=== PATIENT | female | born 1965 | race Caucasian/White ===

== ENCOUNTER → 2016-12-24 | Outpatient (CLI) | payer BC ==
[2016-12-24 08:04] LABS: ALT 28 U/L (9-52); AST 20 U/L (14-36); Alkaline Phosphatase 54 U/L (38-126); Anion Gap 9 mmol/L; Blood Urea Nitrogen 13 mg/dL (7-17); Carbon Dioxide 26 mmol/L (22-30); Chloride 106 mmol/L (98-107); Cholesterol 249 mg/dL (<200); Glucose 89 mg/dL (74-99); HDL Cholesterol 69 mg/dL (40-60); Non-African American GFR(MDRD) >60 (>60 ml/min/1.73 sqM); Potassium 4.1 mmol/L (3.5-5.1); Sodium 141 mmol/L (137-145); Total Bilirubin 0.6 mg/dL (0.2-1.3); Total Protein 7.3 g/dL (6.3-8.2)
--- NOTE | 2016-12-25 12:47 | MM ---
Reason for exam: screening (asymptomatic). Last mammogram was performed 1 year and 1 month ago. History: Family history of breast cancer in maternal aunt and breast cancer in maternal grandmother at age 52. Physical Findings: A clinical breast exam by your physician is recommended on an annual basis and results should be correlated with mammographic findings. MG 3D Screening Mammo W/Cad Bilateral CC and MLO view(s) were taken. Prior study comparison: November 24, 2015, bilateral MG 3d screening mammo w/cad. November 17, 2014, bilateral MG screening mammo w CAD. There are scattered fibroglandular densities. Finding: There are a few typically benign round calcifications in the right breast. There is no discrete abnormality. ASSESSMENT: Benign, BI-RAD 2 RECOMMENDATION: Routine screening mammogram of both breasts in 1 year.
== END | disposition home or self-care (01) ==
LOC: RADMAMWWP 06:54
PROVIDERS: ATTEND Obstetrics & Gynecology
DX: Z12.31 Encounter for screening mammogram for malignant neoplasm of breast (principal); E78.4 Other hyperlipidemia
CPT/HCPCS: 80061; 80053; 77063; 36415; G0202

== ENCOUNTER → 2018-01-05 | Outpatient (CLI) | payer BC ==
[2018-01-05 07:50] LABS: Cholesterol 242 mg/dL (<200); HDL Cholesterol 67 mg/dL (40-60); LDL Cholesterol,Calculated 158 mg/dL (0-99); Triglycerides 83 mg/dL (<150)
--- NOTE | 2018-01-06 14:43 | MM ---
Reason for exam: screening (asymptomatic). Last mammogram was performed 1 year ago. History: Family history of breast cancer in maternal aunt and breast cancer in maternal grandmother at age 52. Physical Findings: A clinical breast exam by your physician is recommended on an annual basis and results should be correlated with mammographic findings. MG 3D Screening Mammo W/Cad Bilateral CC and MLO view(s) were taken. Prior study comparison: December 24, 2016, bilateral MG 3d screening mammo w/cad. November 28, 2015, left breast MG 3d work up w/cad LT. There are scattered fibroglandular densities. There is no discrete abnormality. No significant changes when compared with prior studies. ASSESSMENT: Negative, BI-RAD 1 RECOMMENDATION: Routine screening mammogram of both breasts in 1 year.
== END | disposition home or self-care (01) ==
LOC: RADMAMWWP 07:06
PROVIDERS: ATTEND Obstetrics & Gynecology
DX: Z12.31 Encounter for screening mammogram for malignant neoplasm of breast (principal); Z13.220 Encounter for screening for lipoid disorders
CPT/HCPCS: 77063; 77067; 80061

== ENCOUNTER → 2018-05-22 | Outpatient (CLI) | payer BC ==
[2018-05-22 08:55] LABS: Basophils % (A) 1 %; Eosinophils # (A) 0.2 k/uL (0-0.7); Eosinophils % (A) 2 %; HCT 38.8 % (34.0-46.0); HGB 12.7 gm/dL (11.4-16.0); Lymphocytes # (A) 1.9 k/uL (1.0-4.8); Lymphocytes % (A) 27 %; MCH 30.7 pg (25.0-35.0); MCHC 32.8 g/dL (31.0-37.0); MCV 93.7 fL (80.0-100.0); Mean Platelet Volume 7.2; Monocytes # (A) 0.4 k/uL (0-1.0); Monocytes % (A) 6 %; Neutrophils # (A) 4.3 k/uL (1.3-7.7); Neutrophils % (A) 62 %; Platelet Count 280 k/uL (150-450); RBC 4.14 m/uL (3.80-5.40); RDW 13.4 % (11.5-15.5)
== END | disposition home or self-care (01) ==
LOC: LABWHC1 08:22
PROVIDERS: ATTEND Obstetrics & Gynecology
DX: Z01.818 Encounter for other preprocedural examination (principal); Z01.812 Encounter for preprocedural laboratory examination
CPT/HCPCS: 36415; 85025; 93005

== ENCOUNTER 2018-06-01 06:11 | Day surgery (SDC) | payer BC ==
[2018-05-27 11:35] VITALS: BMI 24.0
--- NOTE | 2018-05-28 12:39 | P.HPOB ---
History of Present Illness H&P Date: 05/28/18 Chief Complaint: Menorrhagia and endometrial polyp This patient is a pleasant 52-year-old 3 para 2 female who presented to my office for evaluation of heavy menstrual bleeding. Patient episode where she began bleeding so heavily the blood was running down her leg and 7 days with flooding. I ordered an ultrasound which showed endometrium to be 8 mm but there appeared to be a 1 cm endometrial polyp. She therefore now presents for further evaluation by hysteroscopy and D&C. Review of Systems Constitutional: Reports as per HPI Menstruation: Reports as per HPI, Reports period heavy Past Medical History Past Medical History: Hyperlipidemia, Thyroid Disorder Additional Past Medical History / Comment(s): uterine polyp History of Any Multi-Drug Resistant Organisms: None Reported Additional Past Surgical History / Comment(s): conization, colonsocopy, EGD; dilation and curettage. Past Anesthesia/Blood Transfusion Reactions: Motion Sickness Past Psychological History: No Psychological Hx Reported Smoking Status: Never smoker Past Alcohol Use History: None Reported Past Drug Use History: None Reported - Past Family History Mother Family Medical History: Cancer Brother(s) Family Medical History: Cancer Medications and Allergies Home Medications Medication Instructions Recorded Confirmed Type Potassium(Dose Unknown) 1 tab PO BID 05/27/18 05/27/18 History Thyrotain(Dose Unknown) 1 tab PO BID 05/27/18 05/27/18 History Vitamin C(Dose Unknown) 1 tab PO DAILY 05/27/18 05/27/18 History Allergies Allergy/AdvReac Type Severity Reaction Status Date / Time prochlorperazine edisylate Allergy Anaphylaxis Verified 05/27/18 11:26 [From Compazine] prochlorperazine maleate Allergy Anaphylaxis Verified 05/27/18 11:26 [From Compazine] Exam - OBG Physical Exam Abdomen: bowel sounds normal, no diffuse tenderness, no bruit present, no guarding noted, no hepatomegaly, no splenomegaly, no mass Vulva: both: normal Vagina: normal moisture, no discharge Cervix: no lesion, no discharge Uterus: normal size, normal contour Results Transvaginal ultrasound on May 05 shows a 1 cm endometrial polyp. Otherwise normal. Assessment and Plan Assessment: This is a pleasant 52-year-old 3 para 2 female with menorrhagia and probable endometrial polyp. Plan is hysteroscopy and D&C for further treatment. Patient and I have discussed the surgery and risks including risks of infection, bleeding, possible uterine perforation. All the patient's questions have been answered and a written consent is obtained. (1) Menorrhagia Status: Acute Code(s): N92.0 - EXCESSIVE AND FREQUENT MENSTRUATION WITH REGULAR CYCLE SNOMED Code(s): 692888021 (2) Endometrial polyp Status: Acute Code(s): N84.0 - POLYP OF CORPUS UTERI SNOMED Code(s): 11154750
[~2018-06-01 06:11] MED LIST: DEXAMETHASONE SOD PHOSPHATE 10 MG/ML 1 ML VIAL IV ONE; LACTATED RINGERS 1,000 ML IV SCH; LIDOCAINE 1% 20 ML VIAL (10MG/ML) FOR IV START INTRADERMA PRN; MIDAZOLAM 2 MG/2 ML VIAL IV PRN; Pre Op ABX Message 1 EACH MISC MISCELLANE ONE; fentaNYL (PF) 50 MCG/ML 2 ML AMP IV PRN
[2018-06-01] MEDS ORDERED: PROPOFOL 10 MG/ML 20 ML VIAL IV ONE (07:22)
[2018-06-01] MEDS ORDERED: MIDAZOLAM 2 MG/2 ML VIAL ONE (07:22)
[2018-06-01] MEDS ORDERED: SUCCINYLCHOLINE CHLORIDE 100 MG/5 ML SYR IV ONE (07:22)
[2018-06-01] MEDS ORDERED: KETOROLAC 30 MG/ML 1 ML VIAL ONE (07:22)
[2018-06-01] MEDS ORDERED: LIDOCAINE 1% INJ 10MG/ML (20 ML MDV) ONE (07:22)
--- NOTE | 2018-06-01 08:01 | P.OP ---
Date of Procedure: 06/01/18 Preoperative Diagnosis: Dysfunctional bleeding and suspected endometrial polyp Postoperative Diagnosis: Same Procedure(s) Performed: #1: Hysteroscopy. #2: Dilation and curettage Anesthesia: ZACKARY Surgeon: Dominic Borja Estimated Blood Loss (ml): 10 Urine output (ml): 100 Pathology: other (Uterine curettings) Condition: stable Disposition: PACU Indications for Procedure: Please see dictated H&P for intimate details of this patient's admission. Brief summary this is a pleasant 52-year-old female with dysfunctional uterine bleeding ultrasound showed what appeared to be a 1 cm endometrial polyp. Patient now presents for hysteroscopy D&C for further evaluation and treatment. Patient does understand the surgery and risks including risks of infection, bleeding, possible uterine perforation. All the patient's questions are answered written consent is obtained. Operative Findings: This patient had a dark fluid collection in the lower uterine segment that most likely was the ultrasound findings there was no evidence of an endometrial polyp. The uterine cavity appeared grossly normal Description of Procedure: This patient is taken to the operating room where she is laid in the supine position. She subsequently undergoes general endotracheal anesthesia without incident. With an adequate level of anesthesia she's placed in dorsal lithotomy position. She has a vaginal perineal prep and drape. Examination anesthesia shows a mid position uterus of normal size. Weighted speculum was placed in the posterior vagina. The bladder is drained for 100 mL of clear urine. Allis clamp was then placed on the anterior lip of the cervix. Cervix is a bit stenotic still using a hemostat I open the cervix immediately there is loss of a large amount of dark fluid most likely the findings that was found on the ultrasound. I then sounded the uterus to 8 and half centimeters. Gentle dilation is done of the endocervix to allow the hysteroscope into the uterine cavity. Using hysteroscopy and saline solution the uterine cavity is completely observing appears to be normal. In the cervix appears normal. There is no evidence of a uterine polyp. The hysteroscope was then removed. Cervix is then dilated more to allow a large curette easily uterine cavity. A gentle but thorough 4 quadrant curettage is done at this time. This point the procedure is ended. The Allis clamp and weighted speculum removed. All counts are correct 3. There are no complications. Patient is awakened from anesthesia and taken recovery room satisfactory condition.
[2018-06-01 08:21] VITALS: TEMP 97.6
[2018-06-01 09:02] VITALS: BP 110/71; PULSE 71; RESP 18
== END 2018-06-01 09:45 | disposition home or self-care (01) ==
LOC: OR 06:11
PROVIDERS: ATTEND Obstetrics & Gynecology
DX: N93.8 Other specified abnormal uterine and vaginal bleeding (principal); E78.5 Hyperlipidemia, unspecified; E07.9 Disorder of thyroid, unspecified; Z79.3 Long term (current) use of hormonal contraceptives; Z85.9 Personal history of malignant neoplasm, unspecified; Z88.8 Allergy status to other drugs, medicaments and biological substances
CPT/HCPCS: 81025; 88305; 58558; J2250; J2001; J1885; J0330; J2704